=== PATIENT | male | born 1950 | race Caucasian/White ===

== ENCOUNTER 2018-09-19 12:45 | Emergency (ER) | payer MEDICARE, BC ==
--- NOTE | 2018-09-19 13:15 | Emergency Department Record ---
History of Present Illness - General Chief Complaint: Back Pain/Injury Stated Complaint: UPPER BACK PAIN Time Seen by Provider: 09/19/18 13:10 Source: Patient Mode of Arrival: Ambulatory Limitations: No limitations - History of Present Illness Initial Comments: 68 yo male presents with upper back/lower neck pain for three days. The pain is where the base of the neck meets the t-spine. He has pain with looking up, down or side to side. He is most comfortable looking forward. The pain radiates paraspinal at times with certain movements. He has had pain radiate to the right upper arm with lifting the arm. No weakness, numbness or tingling. No chest pain. MD Complaint: Back pain Onset/Timin -: Days(s) Similar Symptoms Previously: Yes Place: Home Radiation: Other Severity: Moderate Severity scale (1-10): 10 Quality: Aching Consistency: Intermittent Context: Turning/twisting, While lifting Associated Symptoms: Denies other symptoms - Related Data Home Medications Medication Instructions Recorded Confirmed Last Taken Aspirin [Aspirin EC] 81 mg PO DAILY 09/19/18 09/19/18 1 Day Ago ~09/18/18 Previous Rx's Medication Instructions Recorded Cyclobenzaprine HCl [Flexeril] 10 mg PO TID #20 tablet 09/19/18 Methylprednisolone [Medrol Dose 0 mg PO UD #1 tab.ds.pk 09/19/18 Pack] Allergies Allergy/AdvReac Type Severity Reaction Status Date / Time No Known Allergies Allergy HYPERSENSIT Verified 09/19/18 13:05 [facility] Travel Screening - Travel/Exposure Within Last 30 Days Have you traveled within the last 30 days?: No - Travel/Exposure Within Last Year Have you traveled outside the [place] in the last year?: No - Additonal Travel Details Have you been exposed to anyone with a communicable illness?: No - Travel Symptoms Symptom Screening: None Review of Systems Constitutional: Denies: Chills, Fever, Malaise, Night sweats, Weakness Eyes: Denies: Eye discharge, Eye pain, Photophobia, Vision change ENT: Denies: Congestion, Throat pain Respiratory: Denies: Cough, Dyspnea Cardiovascular: Denies: Chest pain, Palpitations, Syncope Endocrine: Denies: Fatigue Gastrointestinal: Denies: Abdominal pain, Diarrhea, Nausea, Vomiting Genitourinary: Denies: Dysuria, Frequency, Hematuria Musculoskeletal: Reports: As per HPI, Arthralgia, Back pain, Myalgia, Neck pain Skin: Denies: Bruising, Change in color, Rash Neurological: Denies: Headache, Numbness, Vertigo, Weakness Psychiatric: Denies: Anxiety Hematological/Lymphatic: Denies: Easy bleeding, Easy bruising Past Medical History - SOCIAL HISTORY Smoking Status: Never smoker Alcohol Use: Occasional, Heavy Alcohol Use Comment: daily beer Drug Use: None - RESPIRATORY Hx Respiratory Disorders: No - CARDIOVASCULAR Hx Cardio Disorders: Yes Hx Hypertension: Yes - NEURO Hx Neuro Disorders: Yes Comment:: brain concussion, hospital for 7 months, injury 1968 - GI Hx GI Disorders: No - Hx Genitourinary Disorders: No - ENDOCRINE Hx Endocrine Disorders: No - MUSCULOSKELETAL Hx Musculoskeletal Disorders: Yes Hx Arthritis: Yes - PSYCH Hx Psych Problems: Yes Hx Anxiety: Yes Hx Depression: Yes - HEMATOLOGY/ONCOLOGY Hx Hematology/Oncology Disorders: No Family Medical History Any Significant Family History?: Yes Physical Exam - General General Appearance: Alert, Oriented x3, Cooperative, No acute distress Limitations: No limitations - Head Head exam: Atraumatic, Normal inspection - Eye Eye exam: Normal appearance. negative: Conjunctival injection - ENT ENT exam: Normal exam Ear exam: Normal external inspection Nasal Exam: Normal inspection Mouth exam: Normal external inspection - Neck Neck exam: Normal inspection, Tenderness, Other (Very reproducible at the level of C7 to the upper T spine. Tender paraspinal, pain with ROM). negative: Full ROM, Lymphadenopathy, Meningismus - Respiratory Respiratory exam: Normal lung sounds bilaterally. negative: Decreased breath sounds, Respiratory distress, Rhonchi, Stridor, Wheezes - Cardiovascular Cardiovascular Exam: Regular rate, Normal rhythm, Normal heart sounds Peripheral Pulses: 2+: Radial (R), Radial (L) - GI/Abdominal GI/Abdominal exam: Soft. negative: Tenderness - Rectal Rectal exam: Deferred - exam: Deferred - Extremities Extremities exam: Normal inspection, Full ROM (Pain in the lower neck and upper back with force right shoulder abduction), Normal capillary refill. negative: Calf tenderness, Pedal edema, Tenderness Image of Full Body: 1 - tender lower cervical, upper thoracic. Reproduced with palpation and ROM, normal inspection - Back Back exam: Reports: Normal inspection, Paraspinal tenderness, Tenderness, Vertebral tenderness, Other (See above note on examination). Denies: CVA tenderness (R), CVA tenderness (L) - Neurological Neurological exam: Alert, Normal gait, Oriented X3. negative: Motor sensory deficit - Psychiatric Psychiatric exam: Normal affect, Normal mood. negative: Agitated, Anxious - Skin Skin exam: Dry, Intact, Normal color, Warm Course Vital Signs 09/19/18 12:54 Temperature 97.7 F Pulse Rate 74 Respiratory 16 Rate Blood Pressure 154/88 Pulse Ox 99 - Reevaluation(s) Reevaluation #1: 09/19/18 14:30 The Cervical spine report was reviewed. Multi level Degenerative changes, narrowing of foramina. 09/19/18 14:54 The T spine was reviewed. No acute fracture. Multilevel degenerative changes 09/19/18 The patient examination is consistent with musculoskeletal. His pain is reproducible with palpation and movement with certain specific positions. We discussed that outpatient follow up with his PCP for MRI may be helpful as well. We discussed home care and reasons to return to the ED for immediate evaluation. Disposition Disposition: Discharge Clinical Impression: Cervical pain (neck), Thoracic back pain Disposition: Home, Self-Care Condition: (1) Good Instructions: Cervical Strain (ED), Thoracic Pain (ED) Additional Instructions: Call your doctor for the next available follow up appointment Return to the ER for a recheck if worse, any new concerns or questions Take the prescriptions provided as directed Review this ER visit and the tests performed with your family doctor Prescriptions: Cyclobenzaprine HCl [Flexeril] 10 mg PO TID #20 tablet Methylprednisolone [Medrol Dose Pack] 0 mg PO UD #1 tab.ds.pk Forms: Patient Portal Access Time of Disposition: 14:53 Quality - Quality Measures Quality Measures: N/A - Blood Pressure Screening Does Patient Have Any of the Following: No Blood Pressure Classification: Pre-Hypertensive BP Reading Systolic Measurement: 154 Diastolic Measurement: 88 Screening for High Blood Pressure: < Pre-Hypertensive BP, F/U Documented > [ [id number]] Pre-Hypertensive Follow-up Interventions: Referral to alternative/primary care provider.
== END 2018-09-19 15:05 | disposition home or self-care (01) ==
LOC: ER 12:45
DX: G89.11 Acute pain due to trauma (principal); M54.2 Cervicalgia; M54.6 Pain in thoracic spine; X50.1XXA Overexertion from prolonged static or awkward postures, initial encounter; I10 Essential (primary) hypertension
CPT/HCPCS: 72050; 72072; 99283; 99284